=== PATIENT | male | born 2000 | race Two or more races ===

== ENCOUNTER 2019-07-01 08:41 | Emergency (ER) | payer OTHER ==
[~2019-07-01] VITALS: Ht 185.4 cm; Wt 98.8 kg
[2019-07-01 08:41] VITALS: BP 133/72
[2019-07-01] MEDS ORDERED: CEPH-264 PO (09:08)
--- NOTE | 2019-07-01 09:08 | PHYS DOC ---
Past History Past Medical History: No Pertinent History Past Surgical History: No Surgical History Alcohol Use: Occasionally General Adult EDM: Chief Complaint: FOOT INJURY PAIN HPI: HPI: 19-year-old male presents with left great toe pain. The patient has been having some bloody and purulent discharge from the side of his nail bed. The toe is swollen and quite tender. He is concerned about infection. He has been dealing with this on and off for some time. He extracted a piece of toenail from the end of his toe a couple weeks ago. Patient denies fever or chills. He denies trauma. He has no other complaints at this time. Review of Systems: Review of Systems: Constitutional: Denies fever or chills Eyes: Denies change in visual acuity HENT: Denies nasal congestion or sore throat Respiratory: Denies cough or shortness of breath Cardiovascular: Denies chest pain or edema GI: Denies abdominal pain, nausea, vomiting, bloody stools or diarrhea : Denies dysuria Musculoskeletal: Left great toe pain and infection Integument: Denies rash Neurologic: Denies headache, focal weakness or sensory changes Endocrine: Denies polyuria or polydipsia Lymphatic: Denies swollen glands Psychiatric: Denies depression or anxiety Heart Score: Risk Factors: Risk Factors: DM, Current or recent (<one month) smoker, HTN, HLP, family history of CAD, obesity. Risk Scores: Score 0 - 3: 2.5% MACE over next 6 weeks - Discharge Home Score 4 - 6: 20.3% MACE over next 6 weeks - Admit for Clinical Observation Score 7 - 10: 72.7% MACE over next 6 weeks - Early Invasive Strategies Allergies: Allergies: Allergies Coded Allergies Type Severity Reaction Last Updated Verified No Known Drug Allergies 07/01/19 No Physical Exam: PE: Constitutional: Well developed, well nourished, no acute distress, non-toxic appearance. [] HENT: Normocephalic, atraumatic, bilateral external ears normal, oropharynx moist, no oral exudates, nose normal. [] Eyes: PERRLA, EOMI, conjunctiva normal, no discharge. [] Neck: Normal range of motion, no tenderness, supple, no stridor. [] Cardiovascular:Heart rate regular rhythm, no murmur [] Lungs & Thorax: Bilateral breath sounds clear to auscultation [] Abdomen: Bowel sounds normal, soft, no tenderness, no masses, no pulsatile masses. [] Skin: Cellulitis and ingrown toenail of the left great toe with purulent and bloody discharge. [] Back: No tenderness, no CVA tenderness. [] Extremities: No tenderness, no cyanosis, no clubbing, ROM intact, no edema. [] Neurologic: Alert and oriented X 3, normal motor function, normal sensory function, no focal deficits noted. [] Psychologic: Affect normal, judgement normal, mood normal. [] Current Patient Data: Vital Signs: Vital Signs Date Time Temp Pulse Resp B/P (MAP) Pulse Ox O2 Delivery O2 Flow Rate FiO2 07/01/19 08:41 98.1 73 16 133/72 (92) 100 Room Air EKG: EKG: [] Radiology/Procedures: Radiology/Procedures: [] Course & Med Decision Making: Course & Med Decision Making Pertinent Labs and Imaging studies reviewed. (See chart for details) The patient has an infected toenail. It is spontaneously draining so I&D is not necessary at this time. I will place him on Keflex for 7 days. I have advised that he see podiatry as soon as possible for likely surgical intervention. He is stable for discharge at this time. [] Dragon Disclaimer: Boris Disclaimer: This electronic medical record was generated, in whole or in part, using a voice recognition dictation system. Departure Departure: Impression: Primary Impression: Ingrown toenail of left foot with infection Disposition: 01 HOME, SELF-CARE Condition: STABLE Referrals: DELORES SANTOS (PCP) Patient Instructions: Infected Ingrown Toenail Scripts Cephalexin (KEFLEX) 500 Mg Capsule 1 CAP PO TID for infected toe for 7 Days, #21 CAP 0 Refills Prov: RASHI LASSITER DO 07/01/19 RASHI LASSITER DO July 01, 2019 09:08
== END 2019-07-01 09:15 | disposition home or self-care (01) ==
LOC: ER 08:41
DX: L60.0 Ingrowing nail (principal)
CPT/HCPCS: 99283

== ENCOUNTER 2019-12-19 01:05 | Emergency (ER) | payer OTHER ==
[~2019-12-19] VITALS: Ht 185.4 cm; Wt 98.8 kg
[2019-12-19 01:05] VITALS: BP 135/73
[~2019-12-19 01:05] MED LIST: CEPH-264 PO
--- NOTE | 2019-12-19 01:51 | PHYS DOC ---
Past History Past Medical History: No Pertinent History Past Surgical History: No Surgical History Alcohol Use: Occasionally Adult General Chief Complaint Chief Complaint: COUGH HPI HPI Patient is a 19-year-old male who presents for cough. Onset was 30 minutes prior to arrival. Patient was smoking cigarette and inhaled awkwardly prompting him to cough, cough is nonproductive without hemoptysis. He is otherwise a healthy male, in the without any known or previously diagnosed medical conditions. Besides cigarette abuse, no other risk factors for any concerning pathology. No COVID-19 contact, no recent fever, no long distance travel Review of Systems Review of Systems Fourteen body systems of review of systems have been reviewed. See HPI for pertinent positives and negative responses, other rich all other systems are negative, non-pertinent or non-contributory Allergies Allergies Allergies Coded Allergies Type Severity Reaction Last Updated Verified No Known Drug Allergies 07/01/19 No Physical Exam Physical Exam Constitutional: Well developed, well nourished, no acute distress, non-toxic appearance. HENT: Normocephalic, atraumatic, bilateral external ears normal, oropharynx moist, no oral exudates, nose normal. Eyes: PERRLA, EOMI, conjunctiva normal, no discharge. Neck: Normal range of motion, no tenderness, supple, no stridor. Cardiovascular: Heart rate regular, sinus rhythm, no murmurs rubs or gallops Lungs & Thorax: Bilateral breath sounds clear to auscultation, no wheezes, no respiratory distress or accessory muscle use Abdomen: Bowel sounds normal, soft, no tenderness, no masses, no pulsatile masses. Nonsurgical abdomen, no peritoneal signs Skin: Warm, dry, no erythema, no rash. Back: No tenderness, no CVA tenderness. Extremities: No tenderness, no cyanosis, no clubbing, ROM intact, no edema. Neurologic: Alert and oriented X 3, grossly normal motor & sensory function, no focal deficits noted. Psychologic: Affect normal, judgement normal, mood normal. Current Patient Data Vital Signs Vital Signs Date Time Temp Pulse Resp B/P (MAP) Pulse Ox O2 Delivery O2 Flow Rate FiO2 12/19/19 01:05 98.2 95 18 135/73 (93) 97 Room Air EKG EKG [] Radiology/Procedures Radiology/Procedures PROCEDURE: CHEST AP ONLY AP chest. HISTORY: Short of breath AP view was taken of the chest. Patient's taken a poor inspiration. Heart is normal in size. There is no effusion. IMPRESSION: 1. No acute chest disease. Electronically signed by: Agustin Garza MD (12/19/2019 1:47 AM) [id number] Heart Score HEART Score for Chest Pain: HEART Score for Chest Pain Response (Comments) Value History Slighlty/Non-Suspicious 0 Age < 45 0 Risk Factors 1 or 2 Risk Factors 1 Total 1 Risk Factors: Risk Factors: DM, Current or recent (<one month) smoker, HTN, HLP, family history of CAD, obesity. Risk Scores: Risk Factors: DM, Current or recent (<one month) smoker, HTN, HLP, family history of CAD, obesity. Course & Med Decision Making Course & Med Decision Making Patient seen on immediate ER arrival ABCs nonconcerning Comprehensive history and physical exam obtained, no obvious emergent and/or surgical findings I disclose a little utility in further ER work-up. Patient adamant about chest x-ray, this was performed and showed no acute disease I discussed most likely diagnosis of cough secondary to tobacco abuse. I advised patient to quit tobacco use and follow-up with PCP for outpatient PFTs and follow-up I gave patient x1 Tessalon Perle with moderate relief in symptomology, I will write a prescription for him Strict return precautions were discussed with good understanding by patient, all questions and concerns addressed prior to ER departure in stable condition Dragkit Disclaimer Dragon Disclaimer This electronic medical record was generated, in whole or in part, using a voice recognition dictation system. PERC Rule for PE PERC Rule for PE Response (Comments) Value Age > 50: No 0 HR > 100: No 0 Sa02 on room air <95%: No 0 Unilateral leg swelling: No 0 Hemoptysis: No 0 Recent surgery or trauma: No 0 Prior PE or DVT: No 0 Hormone use: No 0 Total 0 Departure Departure: Impression: Primary Impression: Cough Disposition: 01 DC HOME SELF CARE/HOMELESS Condition: STABLE Referrals: PCP,UNKNOWN (PCP) Patient Instructions: Cough, Adult Additional Instructions: As discussed, please call your primary care physician first thing in the morning to schedule outpatient follow-up in upcoming 1 to 10 days after ER departure If any concerning signs or symptoms present prior to outpatient follow-up please do not hesitate to return for repeat evaluation It was a pleasure to take care of you and a wish you a speedy recovery Scripts Benzonatate (TESSALON PERLE) 100 Mg Capsule 100 MG PO TID for Cough for 5 Days, #15 CAP Prov: BRITTA BLAIR DO 12/19/19 BRITTA BLAIR DO Dec 19, 2019 01:51
[2019-12-19] MEDS ORDERED: BENZ100C PO (01:54)
[2019-12-19] MEDS ORDERED: BENZONATATE 100 MG CAPSULE. PO ONE (02:30)
== END 2019-12-19 02:06 | disposition home or self-care (01) ==
LOC: ER 01:05
DX: R05 Cough (principal); F17.210 Nicotine dependence, cigarettes, uncomplicated
CPT/HCPCS: 71045; 99283

== ENCOUNTER 2020-01-09 23:08 | Emergency (ER) | payer OTHER ==
[~2020-01-09] VITALS: Ht 185.4 cm; Wt 98.8 kg
[~2020-01-09 23:08] MED LIST changes: +BENZ100C PO
[2020-01-09 23:23] VITALS: BP 159/99
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
--- NOTE | 2020-01-10 00:17 | RAD ---
Study: 1. CR KNEE LEFT 3V 2. CR TIBIA FIBULA LEFT 3. CR ANKLE LEFT 3V Indication: Fall. Comparison: None. Findings: Knee: No acute fracture or traumatic malalignment. No large knee joint effusion. Maintained femorotibial compartment joint space height. Tibia/fibula: No displaced fracture. Peripherally sclerotic focus at the distal tibia along its lateral margin most typical of a small fibrous cortical defect. No dedicated follow-up is needed. Ankle: No acute fracture. The ankle mortise is symmetric. The visualized foot is unremarkable. Impression: Left knee/tibia and fibula/ankle: No acute osseous abnormality. Electronically signed by: HARRISON SALES MD (01/10/2020 12:14 AM) [id number]
== END 2020-01-10 00:45 | disposition home or self-care (01) ==
LOC: ER 23:08
DX: S80.02XA Contusion of left knee, initial encounter (principal); S80.12XA Contusion of left lower leg, initial encounter; V28.4XXA Motorcycle driver injured in noncollision transport accident in traffic accident, initial encounter; Y93.I9 Activity, other involving external motion; Y92.89 Other specified places as the place of occurrence of the external cause; Y99.8 Other external cause status
CPT/HCPCS: 73562; 73590; 73610; 99284

== ENCOUNTER 2021-02-14 12:50 | Emergency (ER) | payer OTHER ==
[~2021-02-14] VITALS: Ht 185.4 cm; Wt 98.8 kg
[2021-02-14 13:13] VITALS: BP 147/93
[2021-02-14] MEDS ORDERED: DEXAMETHASONE SOD PHOS 10 MG/ML VIAL. IVP ONE (13:15)
[2021-02-14] MEDS ORDERED: IV NORMAL SALINE 1,000ML 1,000 ML IV ONE (13:15)
--- NOTE | 2021-02-14 13:19 | RAD ---
EXAM: Chest, single view. HISTORY: Covid 19 COMPARISON: 12/19/2019. FINDINGS: A frontal view of the chest is obtained. There is faint right upper lobe opacity likely due to interstitial infiltrate. There is no consolidation, pleural effusion or pneumothorax. The heart i s normal in size. IMPRESSION: Suspected right upper lobe interstitial infiltrate. Electronically signed by: Jailyn Mart MD (02/14/2021 1:17 PM) [id number]
--- NOTE | 2021-02-14 13:22 | PHYS DOC ---
Past History Past Medical History: No Pertinent History Past Surgical History: No Surgical History Alcohol Use: None General Adult EDM: Chief Complaint: COUGH HPI: HPI: 20-year-old male presents with shortness of breath. The patient was diagnosed with COVID-19 6 days ago. The patient was not vaccinated. He presents today because he is feeling more short of breath he is also had nausea and vomiting the last day and a half or so. He has not had a fever. He has generalized body aches and fatigue. Review of Systems: Review of Systems: Constitutional: Denies fever or chills. Body aches, fatigue. Eyes: Denies change in visual acuity HENT: Denies nasal congestion or sore throat Respiratory: Cough with shortness of breath Cardiovascular: Denies chest pain or edema GI: nausea, vomiting. Denies abdominal pain, bloody stools or diarrhea : Denies dysuria Musculoskeletal: Denies back pain or joint pain Integument: Denies rash Neurologic: Denies headache, focal weakness or sensory changes Endocrine: Denies polyuria or polydipsia Lymphatic: Denies swollen glands Psychiatric: Denies depression or anxiety Current Medications: Current Meds: Current Medications Medications (Trade) Dose Ordered Sig/Nicky Start Time Stop Time Status Last Admin Dose Admin Dexamethasone Sodium Phosphate (Decadron) 10 mg 1X ONCE 02/14/21 13:15 02/14/21 13:17 DC Sodium Chloride 1,000 ml @ 1,000 mls/hr 1X ONCE 02/14/21 13:15 02/14/21 14:14 Allergies: Allergies: Allergies Coded Allergies Type Severity Reaction Last Updated Verified No Known Drug Allergies 07/01/19 No Physical Exam: PE: Constitutional: Well developed, well nourished, no acute distress, non-toxic appearance. [] HENT: Normocephalic, atraumatic, bilateral external ears normal, oropharynx moist, no oral exudates, nose normal. [] Eyes: PERRLA, EOMI, conjunctiva normal, no discharge. [] Neck: Normal range of motion, no tenderness, supple, no stridor. [] Cardiovascular:Heart rate regular rhythm, no murmur [] Lungs & Thorax: Bilateral breath sounds clear to auscultation [] Abdomen: Bowel sounds normal, soft, no tenderness, no masses, no pulsatile masses. [] Skin: Warm, dry, no erythema, no rash. [] Back: No tenderness, no CVA tenderness. [] Extremities: No tenderness, no cyanosis, no clubbing, ROM intact, no edema. [] Neurologic: Alert and oriented X 3, normal motor function, normal sensory function, no focal deficits noted. [] Psychologic: Affect normal, judgement normal, mood normal. [] Current Patient Data: Vital Signs: Vital Signs Date Time Temp Pulse Resp B/P (MAP) Pulse Ox O2 Delivery O2 Flow Rate FiO2 02/14/21 13:13 98.0 107 18 147/93 (111) 93 Room Air EKG: EKG: [] Radiology/Procedures: Radiology/Procedures: [] Impressions: EXAM: Chest, single view. HISTORY: Covid 19 COMPARISON: 12/19/2019. FINDINGS: A frontal view of the chest is obtained. There is faint right upper lobe opacity likely due to interstitial infiltrate. There is no consolidation, pleural effusion or pneumothorax. The heart is normal in size. IMPRESSION: Suspected right upper lobe interstitial infiltrate. Electronically signed by: Jailyn Mart MD (02/14/2021 1:17 PM) [id number] DICTATED AND SIGNED BY: JAILYN MART MD DATE: 02/14/21 1316 CC: RASHI LASSITER DO; DELORES SANTOS ~MTH0 0 Heart Score: C/O Chest Pain: N/A Risk Factors: Risk Factors: DM, Current or recent (<one month) smoker, HTN, HLP, family history of CAD, obesity. Risk Scores: Score 0 - 3: 2.5% MACE over next 6 weeks - Discharge Home Score 4 - 6: 20.3% MACE over next 6 weeks - Admit for Clinical Observation Score 7 - 10: 72.7% MACE over next 6 weeks - Early Invasive Strategies Course & Med Decision Making: Course & Med Decision Making Pertinent Labs and Imaging studies reviewed. (See chart for details) The patient's chest x-ray is suspicious for right upper lobe interstitial infiltrate. This is likely COVID-19, but I will cover the patient with Rocephin and azithromycin anyway. I will discharge patient on Decadron and azithromycin. Patient has maintained an oxygen saturation greater than 94% since being in the emergency room. He is stable for discharge at this time. [] Dragon Disclaimer: Dragon Disclaimer: This electronic medical record was generated, in whole or in part, using a voice recognition dictation system. Departure Departure: Impression: Primary Impression: COVID-19 Additional Impression: Right upper lobe pneumonia Qualified Codes: J18.9 - Pneumonia, unspecified organism Referrals: DELORES SANTOS (PCP) Patient Instructions: Pneumonia, Adult, [id number] Additional Instructions: You have been tested for or diagnosed with COVID-19. It is an infection caused by a new type of coronavirus. COVID-19 will cause cold-like or mild flu symptoms in most. It can cause more severe symptoms like problems breathing in some. There is no treatment for COVID-19. The body will clear the infection over time. Self-care will help to ease discomfort. Steps to Take: Self-Care Rest as needed. Healthy habits may help you feel better. Steps include: Choose healthy foods including fruits and vegetables. Drink water throughout the day. Get plenty of sleep each night. If you smoke, try to quit. It may ease breathing. Avoid alcohol. Keep Others Healthy The virus can spread to others. Droplets are released every time you sneeze or cough. The droplets can get into the mouth, nose, or eyes of people near you and lead to infection. To lower the chances of spreading COVID-19 to others: Stay at home until your doctor has said it is safe to leave. If you tested positive this will mean staying isolated until both of the following are true: At least 7 days have passed since the start of illness. You are free of fever for at least 72 hours without the use of medicine. During this time: - Avoid public areas, events, or transportation. Do not return to work or school until your doctor has said it is safe to do so. - Call ahead if you need to go to a medical center. Let them know you may have COVID-19. It will help them guide you where to go. They may also ask you to wear a facemask when you come to the office. - If you call for emergency medical services, let them know you may have COVID- 19. While at home: - Try to avoid close contact with others. Stay about 6 feet away. - If possible, spend most of your time in a separate room from others. - Use a face mask if you will be in close contact with others such as sharing a room or vehicle. - Have someone wipe down common surfaces in the home. Use household dispensing and measuring optician every day on areas like doorknobs, counters, or sinks. - Cough or sneeze into a tissue. Throw the tissue away right after use. If a tissue is not available, cough or sneeze into your elbow. - Wash your hands often. Wash them after sneezing or coughing. Use soap and water and wash for at least 20 seconds. Alcohol based hand rope cleaner can be used if soap and wa ter is not available. - Do not prepare food for others. Avoid sharing personal items like forks, spoons, or toothbrushes. - Avoid close contact with pets while you are sick. There is no evidence of the virus passing to pets. This is a safety step until more is known about this virus. Isolation can be frustrating. Social interaction can help. Keep in touch with friends and family through phone and tech options. You can still interact with others in your home, just keep a safe distance of about 6 feet. Follow-up: Your doctors office will check in with you to see if there are any changes in your health. You may be asked to keep track of symptoms to share with them. They will also let you know when you are clear to be in public again. Problems to Look Out For: Contact your doctor if your recovery is not going as you expect. Get emergency care if you have problems such as: - Trouble breathing - Nonstop chest pain or pressure - Changes in awareness, confusion, or problems waking - Lips or face have bluish color - Worsening of symptoms If you think you have an emergency, call for emergency medical services right away. As taken from [facility] Scripts Dexamethasone (Decadron) 4 Mg Tablet 1 TAB PO BID for COVID-19 for 4 Days, #8 TAB 0 Refills Prov: RASHI LASSITER DO 02/14/21 Azithromycin (AZITHROMYCIN TABLET) 250 Mg Tablet 250 MG PO DAILY for ANTI-BIOTIC for 4 Days, #4 TAB 0 Refills Prov: RASHI LASSITER DO 02/14/21 RASHI LASSITER DO Feb 14, 2021 13:22
[2021-02-14] MEDS ORDERED: ONDANSETRON PF 4 MG/2 ML VIAL. IVP ONE (13:30)
[2021-02-14] MEDS ORDERED: AZITHROMYCIN 250 MG TABLET. PO ONE (13:45)
[2021-02-14] MEDS ORDERED: IV NORMAL SALINE 50ML 50 ML ONE (13:47)
[2021-02-14] MEDS ORDERED: cefTRIAXone SODIUM 1 GM VIAL ONE (13:47)
[2021-02-14 13:48] LABS: BASO % 0 % (0-3); EOS % 0 % (0-3); HEMATOCRIT 43.9 % (39.0-53.0); HEMOGLOBIN 14.9 g/dL (13.0-17.5); LYMPH # 0.9 x10^3/uL (1.0-4.8); LYMPH % 20 % (24-48); MEAN CORPUSCULAR HEMOGLOBIN 30 pg (25-35); MEAN CORPUSCULAR HGB CONC 34 g/dL (31-37); MEAN CORPUSCULAR VOLUME 87 fL (79-100); MONO # 0.4 x10^3/uL (0.0-1.1); MONO % 10 % (0-9); NEUT % 70 % (31-73); PLATELET COUNT 142 x10^3/uL (140-400); RED BLOOD COUNT 5.05 x10^6/uL (4.30-5.70); WHITE BLOOD COUNT 4.3 x10^3/uL (4.0-11.0)
[2021-02-14] MEDS ORDERED: AZIT250T6 PO (13:52)
[2021-02-14] MEDS ORDERED: DEXA4TAB63 PO (13:53)
[2021-02-14 13:57] LABS: CALCIUM 8.8 mg/dL (8.5-10.1); CREATININE 1.3 mg/dL (0.7-1.3); GFR 69.7; POTASSIUM 3.6 mmol/L (3.5-5.1)
[2021-02-14 14:03] LABS: ALBUMIN 4.1 g/dL (3.4-5.0); TOTAL BILIRUBIN 0.8 mg/dL (0.2-1.0); TOTAL PROTEIN 8.1 g/dL (6.4-8.2)
== END 2021-02-14 14:30 | disposition home or self-care (01) ==
LOC: ER 12:50
DX: U07.1 COVID-19 (principal); J18.9 Pneumonia, unspecified organism
CPT/HCPCS: 36415; 71045; 80053; 85025; 96365; 96375; 99284; J0696; J1100; J2405; J7030